=== PATIENT | female | born 1975 | race American Indian/Alaskan Native ===

== ENCOUNTER 2016-08-31 11:44 | Emergency (ER) | payer OTHER ==
--- NOTE | 2016-08-31 14:17 | ED PDOC ---
Arrival/HPI - General Time Seen by Provider: 08/31/16 13:00 Historian: Patient - History of Present Illness Narrative History of Present Illness (Text): 08/31/16 14:26 A 41 year old female, whose past medical history includes chronic pain with pain management, presents to the emergency department complaining of diffuse flank pain and vomiting for 2 days. Patient was discharged from [facility] and has frequent visits to the emergency department. Patient denies fevers, urinary symptoms or any other complaints at this time. Time/Duration: Other (2 days) Symptom Onset: Sudden Symptom Course: Unchanged Activities at Onset: Rest Context: Home Past Medical History - Provider Review Nursing Documentation Reviewed: Yes - Musculoskeletal/Rheumatological Hx Arthritis: Yes - Psychiatric Hx Substance Use: No - Suicidal Assessment Feels Threatened In Home Enviroment: No Family/Social History - Physician Review Nursing Documentation Reviewed: Yes Family/Social History: No Known Family HX Hx Alcohol Use: Yes Hx Substance Use: No Allergies/Home Meds Allergies/Adverse Reactions: Allergies No Known Allergies Allergy (Verified 06/15/13 10:29) Review of Systems - Physician Review All systems were reviewed & negative as marked: Yes - Review of Systems Constitutional: absent: Fevers Gastrointestinal: Vomiting Genitourinary Female: absent: Dysuria, Frequency, Hematuria, Urine Output Changes Musculoskeletal: Other (diffuse flank pain) Physical Exam Vital Signs Reviewed: Yes Vital Signs Temp Pulse Resp BP Pulse Ox 08/31/16 16:41 98.7 F 59 L 18 133/51 L 100 Appearance: Positive for: Well-Appearing, Non-Toxic, Comfortable Pain Distress: None Mental Status: Positive for: Alert and Oriented X 3 - Systems Exam Abdomen: Present: Normal Bowel Sounds. No: Tenderness, Distention, Peritoneal Signs Psychiatric: Present: Alert, Oriented x 3, Normal Insight, Normal Concentration , Other (uncomfortable) Medical Decision Making ED Course and Treatment: 08/31/16 14:24 Impression: A 41 year old female with diffuse flank pain and vomiting. Differential Diagnosis included but are not limited to: Plan: -- Reassess and disposition Prior Visits: Notes and results from previous visits were reviewed. Patient last reported to the emergency department on 08/20/13 for evaluation of right lower back abscess. Patient was hospitalized. Progress Notes: 08/31/16 18:19 Abdomen and Pelvis w/o intravenous contrast CT: Creator : Hever Retana MD FINDINGS: LOWER THORAX:Unremarkable. LIVER:Unremarkable. No gross lesion or ductal dilatation. GALLBLADDER AND BILE DUCTS:Gallbladder sludge versus vicarious excretion of contrast material into the gallbladder.. PANCREAS:Unremarkable. No gross lesion or ductal dilatation. SPLEEN:Unremarkable. ADRENALS:Unremarkable. No mass. KIDNEYS AND URETERS:Unremarkable. No hydronephrosis. No solid mass. VASCULATURE:Unremarkable. No aortic aneurysm. BOWEL:Unremarkable. No obstruction. No gross mural thickening. APPENDIX:Unremarkable. Normal appendix. PERITONEUM:Unremarkable. No free fluid. No free air. LYMPH NODES:Unremarkable. No enlarged lymph nodes. BLADDER:Unremarkable. REPRODUCTIVE:Unremarkable. BONES:No acute fracture. OTHER FINDINGS:None. IMPRESSION: Gallbladder sludge versus vicarious excretion of contrast into the gallbladder. Otherwise, unremarkablenon contrast enhanced CT of the abdomen and pelvis. 08/31/16 18:44 Patient is consistently sticking finger in her mouth to vomit. Patient has not vomited spontaneously while in emergency department. Has discussed CT results and labs in detail. Patient instructed to follow-up with pain management. pt was seen tolerating po in the ED. pt instructed to follow up with primary doctor in 1-2 days. 09/11/16 08:40 - Lab Interpretations Microbiology Results: Microbiology Results 08/31/16 13:00 Urine Urine Culture - Final Gram Positive Cocci Lab Results: 08/31/16 13:00 08/31/16 13:00 Lab Results 08/31/16 13:00: Urine Color Yellow, Urine Appearance Sl cloudy, Urine pH 6.0, Ur Specific [place] >= 1.030, Urine Protein 30 H, Urine Glucose (UA) Negative, Urine Ketones >=80, Urine Blood Moderate H, Urine Nitrate Negative, Urine Bilirubin Negative, Urine Urobilinogen 1.0 H, Ur Leukocyte Esterase Negative, Urine RBC 1 - 3, Urine WBC 1 - 3, Ur Epithelial Cells 1 - 3, Urine Bacteria Small, Urine HCG, Qual Negative 08/31/16 13:00: Sodium 138, Potassium 3.2 L, Chloride 104, Carbon Dioxide 24, Anion Gap 13, BUN 8, Creatinine 0.7, Est GFR ( Amer) > 60, Est GFR (Non- Af Amer) > 60, Random Glucose 98, Calcium 9.0, Total Bilirubin 0.9, AST 24, ALT 30, Alkaline Phosphatase 80, Total Protein 7.1, Albumin 4.0, Globulin 3.1, Albumin/Globulin Ratio 1.3 08/31/16 13:00: WBC 9.6, RBC 4.18, Hgb 12.7, Hct 35.8 L, MCV 85.6, MCH 30.4, MCHC 35.5, RDW 12.5, Plt Count 347, MPV 9.3, Gran % 68.1 H, Lymph % (Auto) 26.8 , Cloud % (Auto) 4.9, Eos % (Auto) 0.1 L, Baso % (Auto) 0.1, Gran # 6.53 H, Lymph # 2.6, Cloud # 0.5, Eos # 0.0, Baso # 0.01 I have reviewed the lab results: Yes - RAD Interpretation Radiology Orders: 08/31/16 16:16 ABD & PELVIS W/O PO OR IV CONT [CT] Stat - Medication Orders Current Medication Orders: Discontinued Medications Famotidine (Pepcid) Confirm Administered Dose 20 mg .ROUTE .STK-MED ONE Stop: 08/31/16 14:50 Ketorolac Tromethamine (Toradol) Confirm Administered Dose 30 mg .ROUTE .STK- MED ONE Stop: 08/31/16 13:39 Ondansetron HCl (Zofran Inj) Confirm Administered Dose 4 mg .ROUTE .STK-MED ONE Stop: 08/31/16 13:39 Ondansetron HCl (Zofran Inj) 4 mg IV ONCE ONE Stop: 08/31/16 18:22 Ondansetron HCl (Zofran Inj) Confirm Administered Dose 4 mg .ROUTE .STK-MED ONE Stop: 08/31/16 18:30 Potassium Chloride (K-Dur 20 Meq Er Tab) 20 meq PO STAT STA Stop: 08/31/16 16:41 - Scribe Statement The provider has reviewed the documentation as recorded by the Cindy Ferrer Provider Scribe Attestation: All medical record entries made by the Scribannetta were at my direction and personally dictated by me. I have reviewed the chart and agree that the record accurately reflects my personal performance of the history, physical exam, medical decision making, and the department course for this patient. I have also personally directed, reviewed, and agree with the discharge instructions and disposition. Disposition/Present on Arrival - Present on Arrival Any Indicators Present on Arrival: No History of DVT/PE: No History of Uncontrolled Diabetes: No Urinary Catheter: No History Surgical Site Infection Following: None - Disposition Have Diagnosis and Disposition been Completed?: Yes Diagnosis: Hypokalemia, Chronic pain Disposition: HOME/ ROUTINE Disposition Time: 15:00 Condition: IMPROVED Discharge Instructions (ExitCare): Hypokalemia (ED), Abdominal Pain (ED) Additional Instructions: follow up with your primary doctor in 1-2 days return to the emergency department with any worsening or concerning symptoms. Referrals: [facility] [Outside] - Follow up with primary [facility] [Outside] - Follow up with primary
[2016-08-31 14:23] LABS: ADD MANUAL DIFF? NO
[2016-08-31 14:42] LABS: ALB/GLOB RATIO 1.3 (1.1-1.8); ALKALINE PHOSPHATASE 80 U/L (38-133); ALT/SGPT 30 U/L (7-56); AST/SGOT 24 U/L (15-39); BILIRUBIN,TOTAL 0.9 mg/dL (0.2-1.3); BLOOD UREA NITROGEN 8 mg/dL (7-21); CARBON DIOXIDE 24 mmol/L (21-33); CHLORIDE 104 mmol/L (98-107); GFR AFRICAN-AMERICAN > 60; GLUCOSE,RANDOM 98 mg/dL (70-110); POTASSIUM 3.2 mmol/L (3.6-5.0); SODIUM 138 mmol/L (132-148); TOTAL PROTEIN 7.1 g/dL (5.8-8.3)
[2016-08-31 14:45] LABS: URINE BILIRUBIN NEGATIVE (NEGATIVE); URINE BLOOD MODERATE (NEGATIVE); URINE GLUCOSE (UA) NEGATIVE (NEGATIVE); URINE KETONE >=80 mg/dL (NEGATIVE); URINE LEUKOCYTE ESTERASE NEGATIVE Leu/uL (NEGATIVE); URINE PROTEIN 30 mg/dL (<30 mg/dL)
[2016-08-31 14:46] LABS: URINE APPEARANCE SL CLOUDY (CLEAR); URINE COLOR YELLOW (YELLOW)
[2016-08-31 14:53] LABS: BASO # 0.01 K/mm3 (0.0-2.0); BASO % 0.1 % (0.0-3.0); EOS % 0.1 % (1.5-5.0); GRAN # 6.53 (1.4-6.5); GRAN % 68.1 % (50.0-68.0); HEMATOCRIT 35.8 % (36.0-48.0); LYMPH # 2.6 (1.2-3.4); LYMPH % 26.8 % (22.0-35.0); MEAN CELL VOLUME 85.6 fL (80.0-105.0); MEAN CORPUSCULAR HEMOGLOBIN 30.4 pg (25.0-35.0); MEAN CORPUSCULAR HGB CONC 35.5 g/dl (31.0-37.0); MEAN PLATELET VOLUME 9.3 fl (7.0-11.0); MONO # 0.5 (0.1-0.6); MONO % 4.9 % (1.0-6.0); PLATELET COUNT 347 10^3/uL (120.0-450.0); RED CELL DISTRIBUTION WIDTH 12.5 % (11.5-14.5); WHITE BLOOD COUNT 9.6 10^3/ul (4.5-11.0)
[2016-08-31 14:57] LABS: URINE BACTERIA SMALL (NEG)
[2016-08-31 16:01] VITALS: BMI 28.3
[2016-08-31] MEDS ORDERED: Potassium Chloride 20 mEq ER Tab PO STA (16:40)
[2016-08-31 16:42] VITALS: BP 133/51; PULSE 59; RESP 18; TEMP 98.7; O2SAT 100
--- NOTE | 2016-08-31 17:38 | CT ---
PROCEDURE: CT Abdomen and Pelvis without intravenous contrast HISTORY: abd pain COMPARISON: None. TECHNIQUE: Technique. Contrast Dose: Radiation dose: Total exam DLP = mGy-cm. This CT exam was performed using one or more of the following dose reduction techniques: Automated exposure control, adjustment of the mA and/or kV according to patient size, and/or use of iterative reconstruction technique. FINDINGS: LOWER THORAX: Unremarkable. LIVER: Unremarkable. No gross lesion or ductal dilatation. GALLBLADDER AND BILE DUCTS: Gallbladder sludge versus vicarious excretion of contrast material into the gallbladder.. PANCREAS: Unremarkable. No gross lesion or ductal dilatation. SPLEEN: Unremarkable. ADRENALS: Unremarkable. No mass. KIDNEYS AND URETERS: Unremarkable. No hydronephrosis. No solid mass. VASCULATURE: Unremarkable. No aortic aneurysm. BOWEL: Unremarkable. No obstruction. No gross mural thickening. APPENDIX: Unremarkable. Normal appendix. PERITONEUM: Unremarkable. No free fluid. No free air. LYMPH NODES: Unremarkable. No enlarged lymph nodes. BLADDER: Unremarkable. REPRODUCTIVE: Unremarkable. BONES: No acute fracture. OTHER FINDINGS: None. IMPRESSION: Gallbladder sludge versus vicarious excretion of contrast into the gallbladder. Otherwise, unremarkablenon contrast enhanced CT of the abdomen and pelvis.
== END 2016-08-31 18:37 | disposition home or self-care (01) ==
LOC: ED 11:44
DX: E87.6 Hypokalemia (principal); G89.29 Other chronic pain

== ENCOUNTER 2016-09-01 12:09 | Emergency (ER) | payer OTHER ==
[2016-09-01 12:10] VITALS: BMI 28.3
[2016-09-01 12:12] VITALS: RESP 18; TEMP 98.9; O2SAT 100
[2016-09-01 13:46] LABS: HEMATOCRIT 33.1 % (36.0-48.0); MEAN CELL VOLUME 84.9 fL (80.0-105.0); MEAN CORPUSCULAR HGB CONC 35.3 g/dl (31.0-37.0); MEAN PLATELET VOLUME 8.9 fl (7.0-11.0); RED CELL DISTRIBUTION WIDTH 12.3 % (11.5-14.5); WHITE BLOOD COUNT 8.3 10^3/ul (4.5-11.0)
[2016-09-01 13:58] LABS: ALB/GLOB RATIO 1.3 (1.1-1.8); ALKALINE PHOSPHATASE 71 U/L (38-133); ALT/SGPT 31 U/L (7-56); AST/SGOT 30 U/L (15-39); BLOOD UREA NITROGEN 12 mg/dL (7-21); CALCIUM 9.1 mg/dL (8.4-10.5); CARBON DIOXIDE 27 mmol/L (21-33); CHLORIDE 102 mmol/L (98-107); GFR AFRICAN-AMERICAN > 60; GLUCOSE,RANDOM 92 mg/dL (70-110); POTASSIUM 3.3 mmol/L (3.6-5.0); SODIUM 137 mmol/L (132-148); TOTAL PROTEIN 6.9 g/dL (5.8-8.3)
[2016-09-01] MEDS ORDERED: Potassium Chloride 20 mEq ER Tab PO STA (14:05)
--- NOTE | 2016-09-01 14:18 | ED PDOC ---
Arrival/HPI <González Torres DO - Last Filed: 09/01/16 14:34> - General Historian: Patient - History of Present Illness Time/Duration: 24 hours <Sruthi Danielle - Last Filed: 09/01/16 15:06> - General Chief Complaint: Abdominal Pain Time Seen by Provider: 09/01/16 12:13 - History of Present Illness Narrative History of Present Illness (Text): 09/01/16 14:15 This is a 41Y F with PMH of chronic pain who sees pain management who came to [facility] yesterday as well as [facility] last night for abdominal pain. She says it hurts everywhere. She says she has been vomiting blood, but was noted to stick her finger down her throat at [facility] yesterday. She denies CP, SOB, diarrhea, numbness/tingling. She is requesting for pain medicine. (Sruthi Danielle) Past Medical History - Provider Review Nursing Documentation Reviewed: Yes - Musculoskeletal/Rheumatological Hx Arthritis: Yes - Gastrointestinal Hx Vomiting: Yes - Genitourinary/Gynecological Hx Urinary Tract Infection: Yes - Psychiatric Hx Depression: No Hx Substance Use: Yes (sometimes) - Anesthesia Hx Anesthesia: No Hx Anesthesia Reactions: No Hx Malignant Hyperthermia: No - Suicidal Assessment Feels Threatened In Home Enviroment: No <Sruthi Danielle - Last Filed: 09/01/16 15:06> Family/Social History - Physician Review Nursing Documentation Reviewed: Yes Family/Social History: Unknown Family HX Smoking Status: Never Smoked Hx Alcohol Use: Yes Hx Substance Use: Yes (sometimes) Substance used: marijuana <Sruthi Danielle - Last Filed: 09/01/16 15:06> Allergies/Home Meds <González Torres DO - Last Filed: 09/01/16 14:34> <Sruthi Danielle - Last Filed: 09/01/16 15:06> Allergies/Adverse Reactions: Allergies No Known Allergies Allergy (Verified 06/15/13 10:29) Review of Systems - Physician Review All systems were reviewed & negative as marked: Yes - Review of Systems Constitutional: absent: Fevers Eyes: Normal. absent: Vision Changes ENT: Normal. absent: Hearing Changes Respiratory: Normal. absent: SOB Cardiovascular: Normal. absent: Chest Pain, Palpitations Gastrointestinal: Abdominal Pain, Nausea, Vomiting. absent: Constipation, Diarrhea Genitourinary Female: Normal. absent: Dysuria, Frequency, Hematuria Musculoskeletal: Back Pain, Myalgias. absent: Arthralgias Skin: Normal. absent: Rash, Pruritis Neurological: Normal Endocrine: Normal. absent: Diaphoresis Hemo/Lymphatic: Normal Psychiatric: Normal. absent: Anxiety, Depression <Sruthi Danielle - Last Filed: 09/01/16 15:06> Physical Exam <González Torres DO - Last Filed: 09/01/16 14:34> Vital Signs Reviewed: Yes Temperature: Afebrile Blood Pressure: Normal Pulse: Regular Respiratory Rate: Normal Appearance: Positive for: Well-Appearing, Non-Toxic, Comfortable Pain Distress: None Mental Status: Positive for: Alert and Oriented X 3 - Systems Exam Head: Present: Atraumatic, Normocephalic Pupils: Present: PERRL Extroacular Muscles: Present: EOMI Conjunctiva: Present: Normal Mouth: Present: Moist Mucous Membranes Neck: Present: Normal Range of Motion Respiratory/Chest: Present: Clear to Auscultation, Good Air Exchange. No: Respiratory Distress, Accessory Muscle Use Cardiovascular: Present: Regular Rate and Rhythm, Normal S1, S2. No: Murmurs Abdomen: Present: Tenderness, Normal Bowel Sounds. No: Distention, Peritoneal Signs Back: Present: Normal Inspection Upper Extremity: Present: Normal Inspection. No: Cyanosis, Edema Lower Extremity: Present: Normal Inspection. No: Edema Neurological: Present: GCS=15, CN II-XII Intact, Speech Normal Skin: Present: Warm, Dry, Normal Color. No: Rashes Psychiatric: Present: Alert, Oriented x 3, Normal Insight, Normal Concentration <Sruthi Danielle - Last Filed: 09/01/16 15:06> Vital Signs Temp Pulse Resp BP Pulse Ox 09/01/16 13:58 61 18 136/71 100 09/01/16 12:12 98.9 F 59 L 18 138/72 100 Medical Decision Making - Lab Interpretations I have reviewed the lab results: Yes <González Torres DO - Last Filed: 09/01/16 14:34> Re-evaluation Time: 15:03 - Lab Interpretations I have reviewed the lab results: Yes Interpretation: Abnormal lab values (Hypokalemia) - RAD Interpretation Machine Molder Squeeze: Radiologist <Sruthi Danielle - Last Filed: 09/01/16 15:06> ED Course and Treatment: Patient seen and examined with resident. Came up with treatment and disposition plan with resident. The patient is a 41 year old female who comes to the emergency department for evaluation of abdominal pain. Additional HPI details as noted by the resident. Physical examination reveal no acute findings. Patient was in the emergency department yesterday and had a abdomen/CT, which showed sludge in the gallbladder. Labs, Urinalysis and Ultrasound of the gallbladder ordered. (González Torres DO) 09/01/16 14:19 Impression: This is a 41Y F with PMH of chronic pain who is here for abdominal pain. She is noted to have multiple admissions at [facility], [facility] and [facility] in the past 36hrs asking for pain medication. She had CT abd/pelvis yesterday at [facility]. It showed sludge in gallbladder, but otherwise normal. Differential Diagnosis included but are not limited to: chronic pain v. gallstone Plan: -- CBC, CMP, U/A, UDS -- Toradol IM -- Gallbladder U/S -- Reassess and disposition Prior Visits: Notes and results from previous visits were reviewed. Progress Note: Patient noted to be hypokalemic. Potassium 40meq PO given. Patient noted to be asleep resting comfortably in bed. Gall bladder U/S normal. Re-evaluation: Discussed results and plan with patient. Patient understands results and is agreeable with plan. All questions answered. (Sruthi Danielle) - Lab Interpretations Lab Results: 09/01/16 13:33 09/01/16 13:33 Lab Results 09/01/16 13:33: Sodium 137, Potassium 3.3 L, Chloride 102, Carbon Dioxide 27, Anion Gap 11, BUN 12, Creatinine 0.8, Est GFR ( Amer) > 60, Est GFR (Non- Af Amer) > 60, Random Glucose 92, Calcium 9.1, Total Bilirubin 1.0, AST 30, ALT 31, Alkaline Phosphatase 71, Total Protein 6.9, Albumin 3.9, Globulin 3.0, Albumin/Globulin Ratio 1.3 09/01/16 13:33: WBC 8.3, RBC 3.90, Hgb 11.7 L, Hct 33.1 L, MCV 84.9, MCH 30.0, MCHC 35.3, RDW 12.3, Plt Count 304, MPV 8.9 - RAD Interpretation Narrative RAD Interpretations (Text): HISTORY: gallbladder sludge on CT COMPARISON: None. TECHNIQUE: Sonographic evaluation of the right upper quadrant of the abdomen. LIVER: Measures cm in length. Normal echogenicity of the liver parenchyma. No mass. No intrahepatic bile duct dilatation. GALLBLADDER: Unremarkable. No gallstones. COMMON BILE DUCT: Measures mm. No stones. No dilatation. PANCREAS: Unremarkable as visualized. No mass. No ductal dilatation. RIGHT KIDNEY: Measures cm in length. Normal echogenicity. No calculus, mass, or hydronephrosis. AORTA: No aneurysmal dilatation. IVC: Unremarkable. OTHER FINDINGS: None . IMPRESSION: Normal exam. (Sruthi Danielle) Radiology Orders: 09/01/16 13:30 GALL BLADDER [US] Stat - Medication Orders Current Medication Orders: Discontinued Medications Ketorolac Tromethamine (Toradol) 60 mg IM STAT STA Stop: 09/01/16 13:31 Potassium Chloride (K-Dur 20 Meq Er Tab) 20 meq PO STAT STA Stop: 09/01/16 14:06 - PA / AIRPORT SCREENER / Resident Statement / has reviewed & agrees with the documentation as recorded. [place]O has examined the patient and agrees with the treatment plan. - Scribe Statement The provider has reviewed the documentation as recorded by the Scribe <González Torres DO - Last Filed: 09/01/16 14:34> <Sruthi Danielle - Last Filed: 09/01/16 15:06> - Scribe Statement Esthela Lorenzo Provider Scribe Attestation: All medical record entries made by the Scribe were at my direction and personally dictated by me. I have reviewed the chart and agree that the record accurately reflects my personal performance of the history, physical exam, medical decision making, and the department course for this patient. I have also personally directed, reviewed, and agree with the discharge instructions and disposition. (González Torres DO) Disposition/Present on Arrival <González Torres DO - Last Filed: 09/01/16 14:34> - Present on Arrival Any Indicators Present on Arrival: No History of DVT/PE: No History of Uncontrolled Diabetes: No Urinary Catheter: No History of Decub. Ulcer: No History Surgical Site Infection Following: None - Disposition Have Diagnosis and Disposition been Completed?: Yes Disposition Time: 15:03 Patient Plan: Discharge <Sruthi Danielle - Last Filed: 09/01/16 15:06> - Disposition Diagnosis: Abdominal pain Disposition: HOME/ ROUTINE Patient Problems: Current Active Problems Problem Status Onset Abdominal pain Acute Condition: GOOD Discharge Instructions (ExitCare): Abdominal Pain (ED) Print Language: LUXEMBOURGER Additional Instructions: Ms. Garner, thank you for letting us take care of you today. Your provider was Dr. Danielle. You were treated for abdominal pain. The emergency medical care you received today was directed at your acute symptoms. If you were prescribed any medication, please fill it and take as directed. It may take several days for your symptoms to resolve. Return to the Emergency Department if your symptoms worsen, do not improve, or if you have any other problems. Please contact your doctor or call one of the physicians/clinics you have been referred to that are listed on the Patient Visit Information form that is included in your discharge packet. Bring any paperwork you were given at discharge with you along with any medications you are taking to your follow up visit. Our treatment cannot replace ongoing medical care by a primary care provider (PCP) outside of the emergency department. Thank you for allowing the [facility] team to be part of your care today. Please follow up with PMD and pain specialist. Referrals: Francis Brooke MD [Primary Care Provider] - Follow up with primary Moustapha Altman MD [Staff Provider] - Follow up with primary
--- NOTE | 2016-09-01 14:47 | US ---
HISTORY: gallbladder sludge on CT COMPARISON: None. TECHNIQUE: Sonographic evaluation of the right upper quadrant of the abdomen. FINDINGS: LIVER: Measures cm in length. Normal echogenicity of the liver parenchyma. No mass. No intrahepatic bile duct dilatation. GALLBLADDER: Unremarkable. No gallstones. COMMON BILE DUCT: Measures mm. No stones. No dilatation. PANCREAS: Unremarkable as visualized. No mass. No ductal dilatation. RIGHT KIDNEY: Measures cm in length. Normal echogenicity. No calculus, mass, or hydronephrosis. AORTA: No aneurysmal dilatation. IVC: Unremarkable. OTHER FINDINGS: None . IMPRESSION: Normal exam.
[2016-09-01 15:03] VITALS: BP 134/69; PULSE 65
== END 2016-09-01 15:50 | disposition home or self-care (01) ==
LOC: ED 12:09
DX: R10.9 Unspecified abdominal pain (principal)
CPT/HCPCS: 76705; 80053; 85027; 96372; 99284; J1885